=== PATIENT | male | born 1955 | race Caucasian/White ===

== ENCOUNTER → 2016-11-20 | Outpatient (CLI) | payer BC | END | disposition home or self-care (01) | LOC: PCVCIMAG 08:31 | PROVIDERS: ATTEND Internal Medicine | DX: I65.23 Occlusion and stenosis of bilateral carotid arteries (principal); I25.10 Atherosclerotic heart disease of native coronary artery without angina pectoris; E78.5 Hyperlipidemia, unspecified; I95.1 Orthostatic hypotension; F17.200 Nicotine dependence, unspecified, uncomplicated | CPT/HCPCS: 93005; 93880 ==

== ENCOUNTER → 2017-12-01 | Outpatient (CLI) | payer BC | END | disposition home or self-care (01) | LOC: PCVCIMAG 13:26 | DX: I65.23 Occlusion and stenosis of bilateral carotid arteries (principal); I25.10 Atherosclerotic heart disease of native coronary artery without angina pectoris; I95.1 Orthostatic hypotension; E78.2 Mixed hyperlipidemia; Z87.891 Personal history of nicotine dependence | CPT/HCPCS: 93005; 93880; G0463 ==

== ENCOUNTER → 2018-12-10 | Outpatient (CLI) | payer BC ==
--- NOTE | 2018-12-10 10:24 | PCVCIMAG ---
APPROVED REPORT Indications Stenosis Risk Factors Hypertension: Hyperlipidemia Current Smoker Doppler Spectral Velocity Analysis PSV / EDVPSV / EDV ECA (R) 215 / 25 cm/sECA (L) 104 / 12 cm/s dICA (R) 106 / 25 cm/sdICA (L) 100 / 42 cm/s Jacqueline (R) 94 / 34 cm/smICA (L) 212 / 61 cm/s pICA (R) 108 / 20 cm/spICA (L) 220 / 44 cm/s Bulb (R) 100 / 18 cm/sBulb (L) 88 / 21 cm/s dCCA (R) 110 / 20 cm/sdCCA (L) 116 / 23 cm/s mCCA (R) 142 / 29 cm/smCCA (L) 142 / 35 cm/s Vert (R) 46 / 0 cm/sVert (L) 65 / 18 cm/s ICA/CCA 0.98ICA/CCA 1.90 Basic Measurements Blood Pressure: Pulses: Right Left RightLeft Brachial(Sitting) 148/22egTg730/80mmHgTemporal Real Time B-Mode Imaging Vert. (R)AntegradeVert. (L)Antegrade Findings The right carotid bulb has moderate calcified plaque. The right proximal internal carotid artery shows <40% stenosis. The right common carotid artery shows no significant stenosis. The right external carotid artery shows >50% stenosis. The left carotid bulb has moderately severe calcified plaque. The left proximal internal carotid artery shows 60-70% stenosis. The left common carotid artery shows no significant stenosis. The left external carotid artery shows no significant stenosis. Conclusion 1. Right internal carotid artery stenosis (<40%) 2. Left internal carotid artery stenosis (60-70%). 3. Antegrade vertebral flow Similar to a study dated November 2017. 65% left ICA stenosis by angiography (2014)
--- NOTE | 2018-12-10 11:19 | PCVCIMAG ---
APPROVED REPORT Study performed: 12/10/2018 09:48:47 Exam: Stress Echocardiogram Indication: CAD s/p PCI,stent x 2, Patient Location: Echo lab Stress Nurse: Amna Greenfield RN Room #: 2 Status: routine Ht: 5 ft 10 in HR: 94 bpm BP: 156/80 mmHg Rhythm: NSR Medical History Medical History: CAD s/p stent, , Hyperlipidemia Cardiac Risk Factors: Hyperlipidemia, Tobacco History (Current/Recent) Previous Cardiac Procedures: PCI Pretest Chest Pain Characteristics: No chest pain Exercise History: Sedentary Procedure The patient underwent an Exercise Stress Test using the Magdiel Protocol. Blood pressure, heart rate, and EKG were monitored. An Echocardiogram was performed by fire alarm technician in four stages in quad fashion. At peak stress, four selected images were obtained and placed side by side with resting images for comparison. Stress Test Details Stress Test: Exercise stress testing was performed using a Magdiel protocol. HR Resting HR: 94 bpmMax Heart Rate (APMHR): 159 bpm Max HR Achieved: 171 bpmTarget HR (85% APMHR): 135 bpm % of APMHR: 107 Recovery HR: 117 bpm HR response to stress: Normal HR response to stress BP Resting BP: 156/80 mmHg Max BP: 210/88 mmHg Recovery BP: 138/80 mmHg BP response to stress: Mildly hypertensive response to exercise ECG Resting ECG: Sinus Rhythm Stress ECG: Sinus Rhythm, nonspecific ST-T abnormalities ST Change: Upsloping ST depression Maximum ST Deviation: 1 mm Arrhythmia: Occasional PVCs, Recovery ECG: Sinus Rhythm Recovery ST Change: Non-ischemic Recovery ST Deviation: 0 mm Recovery Arrhythmia: rare PVc Clinical Reason for Termination: Maximal effort Stress Symptoms: Fatigue Exercise duration: 6 min 00 sec Highest Stage Achieved: Stage 2: 2.5 mph at 12% grade. Exercise capacity: 7.0 METs Overall Exercise Capacity for Age: Poor Scale: Sedentary Angina Score: None No complications. Stress ECG Conclusion The patient exercised according to the MAGDIEL protocol for 6:00 mins; achieving a work level of 7.0 METS. The resting heart rate of 94 bpm garima to a maximum heart rate of 171 bpm. This value represent 107% of the maximal, age-predicted heart rate. The resting blood pressure of 156/80 mmHg, garima to a maximum blood pressure of 210/88mmHg. The exercise test was stopped due to fatigue . Hernandez Treadmill Score is 1.0 which is Moderate risk. Pre-Stress Echo The resting Echocardiogram showed normal left ventricular contractility with an estimated Ejection Fraction of about 55-60%. Normal wall motion in all segments on baseline images. Post-Stress Echo The stress Echocardiogram showed normal left ventricular contractility with an estimated Ejection Fraction of about 65-70%. Normal augmentation of wall motion in all segments on post stress images. Clinical No clinical or ECG evidence for ischemia. Conclusion Clinical Response: Non-ischemic Exercise Capacity: Below Average Stress ECG Response: Ischemic Stress Echo Images: Non-ischemic No clinical or echocardiographic evidence for ischemia. Ischemic electrocardiographic changes, likely false positive in light of rapid resolution into recovery and echocardiographic findings. No echocardiographic evidence for exercise induced ischemia. Normal stress echocardiogram with maximal exercise stress. <Conclusion> No clinical or echocardiographic evidence for ischemia. Ischemic electrocardiographic changes, likely false positive in light of rapid resolution into recovery and echocardiographic findings. No echocardiographic evidence for exercise induced ischemia. Normal stress echocardiogram with maximal exercise stress.
== END | disposition home or self-care (01) ==
LOC: PCVCIMAG 08:48
PROVIDERS: ATTEND Internal Medicine
DX: I65.23 Occlusion and stenosis of bilateral carotid arteries (principal); E78.5 Hyperlipidemia, unspecified; I25.10 Atherosclerotic heart disease of native coronary artery without angina pectoris
CPT/HCPCS: 93325; 93351; 93880